=== PATIENT | male | born 1970 | race Two or more races ===

== ENCOUNTER 2021-08-02 04:18 | Emergency (ER) | payer SELFPAY ==
[2021-08-02 04:20] VITALS: BP 139/109; PULSE 92; RESP 30; TEMP 36.5; O2SAT 84; BMI 30.7
--- NOTE | 2021-08-02 04:28 | PC.NURSE ---
LANGUAGE INTERPRETING SERVICE IN USE.
--- NOTE | 2021-08-02 04:34 | ECG_ITS ---
APPROVED REPORT Exam: Resting ECG HR:95 bpm ECG Measurements Heart Rate 95 AXES HI 152 P -27 QRSd 80 QRS 68 QT 358 T 67 QTc 449 Conclusion Normal sinus rhythm Normal ECG Electronically signed by : Roberto Valdivia MD 08/07/2021 10:00:05
--- NOTE | 2021-08-02 04:37 | PC.NURSE ---
respitory in room for neb treatment
--- NOTE | 2021-08-02 04:39 | XR_ITS ---
PROCEDURE INFORMATION: Exam: XR Chest Exam date and time: 08/02/2021 4:39 AM Age: 51 years old Clinical indication: Shortness of breath; Additional info: SOA TECHNIQUE: Imaging protocol: XR of the chest. Views: 1 view. COMPARISON: No relevant prior studies available. FINDINGS: Lungs: Unremarkable. No consolidation. Pleural spaces: Unremarkable. No pleural effusion. No pneumothorax. Heart/Mediastinum: Unremarkable. No cardiomegaly. Bones/joints: Unremarkable. IMPRESSION: No acute findings.
--- NOTE | 2021-08-02 04:40 | PC.NURSE ---
O2 98% on 15LPM non-rebreather
[2021-08-02 04:47] LABS: Basophils # 0.1 K/mm3 (0-0.2); Basophils % 1.5 % (0.1-2.0); Eosinophils # 0.8 K/mm3 (0.0-0.4); Eosinophils % 11.9 % (0.1-12.0); Hematocrit 46.1 % (42.0-52.0); Hemoglobin 14.6 g/dL (14.1-18.0); Lymphocytes # 2.2 K/mm3 (0.7-4.5); Lymphocytes % 35.5 % (10-50); Mean Corpuscular HGB Conc 31.8 g/dL (31.8-35.4); Mean Corpuscular Hemoglobin 30.5 pg (27.0-31.2); Mean Platelet Volume 9.5 fl (7.4-10.4); Monocytes # 0.3 K/mm3 (0.1-1.0); Monocytes % 5.4 % (1.7-9.3); Neutrophils # 2.9 K/mm3 (1.8-7.8); Neutrophils % 45.8 % (37.0-80.0); Platelet Count 279 K/mm3 (142-424); Red Cell Distribution Width 13.5 % (11.5-17.5); White Blood Count 6.3 K/mm3 (4.8-10.8)
[2021-08-02 04:51] VITALS: BP 136/98; PULSE 80; O2SAT 98
[2021-08-02 04:53] LABS: Alanine Aminotransferase 34 U/L (12-78); Albumin Level 4.6 g/dl (3.5-5.0); Alkaline Phosphatase 189 U/L (38-126); Anion Gap 9.8 mEq/L (5-15); Aspartate Amino Transferase 39 U/L (17-59); Bilirubin,Direct 0.1 mg/dl (0.0-0.4); Bilirubin,Indirect 0.3 mg/dL (0.0-0.9); Bilirubin,Total 0.4 mg/dl (0.2-1.3); Bilirubin,Unconjugated 0.2 mg/dL (0.0-1.1); Blood Urea Nitrogen 14 mg/dl (9-20); Calcium 9.4 mg/dl (8.4-10.2); Carbon Dioxide 30 mmol/L (22.0-30.0); Chloride 104 mmol/L (98-107); Creatinine Clearance Estimated 136 mL/min (50-200); Estimated Glomerular Filt Rate 103 ml/min (>60); GFR (African American) 124 ML/MIN (>60); Glucose 122 mg/dl (74-100); Potassium 3.8 mmoL/L (3.5-5.1); Sodium 140 mmol/L (136-145); Total Protein,Serum 8.1 g/dl (6.3-8.2)
[2021-08-02 05:06] LABS: Troponin I < 0.01 ng/ml (0.00-0.034)
[2021-08-02 05:18] VITALS: BP 137/94; PULSE 76; O2SAT 97
--- NOTE | 2021-08-02 05:23 | [facility].EDSOB ---
ED Disposition Clinical Impression: Asthma with exacerbation Qualifiers: Asthma severity: moderate Asthma persistence: unspecified Qualified Code(s): J45.901 - Unspecified asthma with (acute) exacerbation Disposition: Home, Self-Care Condition on Discharge: Good Instructions: DI for Asthma -- Adult Additional Instructions: fluids and see pcp for follow up Prescriptions: predniSONE [Prednisone 20mg Tab] 20 mg PO BID #10 tab Prescription Printed Referrals: Provider,Referral, [Primary Care Provider] - - Critical Care Critical Care Time: No Attestation: On 08/02/21, the high probability of a clinically significant, sudden or life threatening deterioration of the following system(s) required my full and direct attention, intervention and personal management. The time I documented below is in addition to time spent performing reported procedures but includes the following listed in this critical care notation. Medical Decision Making - Medical Records Medical records reviewed: Yes: I reviewed the patient's medical records. - Raymond Inquiry Pt receiving controlled substance: No Vital Signs: 08/02/21 04:20 08/02/21 04:51 08/02/21 05:18 Temperature 97.7 F Temperature Source Oral Pulse Rate 80 76 Pulse Rate [Right Radial] 92 H Respiratory Rate 30 H Blood Pressure 136/98 H 137/94 H Blood Pressure [Right Arm] 139/109 H Blood Pressure Mean [Right Arm] 119 Blood Pressure Source Automatic Cuff Automatic Cuff Blood Pressure Source [Right Arm] Automatic Cuff Blood Pressure Position Supine Supine Blood Pressure Position [Right Arm] Sitting 02 Sat by Pulse Oximetry 84 L 98 97 Oxygen Delivery Method Room Air Nasal Cannula Room Air - Lab Data Lab results reviewed: Yes: I reviewed the patient's lab results. Lab Results 08/02/21 04:30: WBC 6.3, RBC 4.80, Hgb 14.6, Hct 46.1, MCV 96.0 H, MCH 30.5, MCHC 31.8, RDW 13.5, Plt Count 279, MPV 9.5, Neut % (Auto) 45.8, Lymph % (Auto) 35.5, [place] % (Auto) 5.4, Eos % (Auto) 11.9, Baso % (Auto) 1.5, Neut # (Auto) 2.9, Lymph # (Auto) 2.2, [place] # (Auto) 0.3, Eos # (Auto) 0.8 H, Baso # (Auto) 0.1 08/02/21 04:30: Sodium 140, Potassium 3.8, Chloride 104, Carbon Dioxide 30, Anion Gap 9.8, BUN 14, Creatinine 0.80, Estimated Creat Clear 136, Estimated GFR 103, Est GFR ( Amer) 124, Glucose 122 H, Calcium 9.4, Total Bilirubin 0.4, Direct Bilirubin 0.1, Conjugated Bilirubin 0.0, Indirect Bilirubin 0.3, Unconjugated Bilirubin 0.2, AST 39, ALT 34, Alkaline Phosphatase 189 H, Troponin I < 0.01, Total Protein 8.1, Albumin 4.6 Result diagrams: 08/02/21 04:30 08/02/21 04:30 Orders (Tests/Meds): ED MEDICATIONS Generic Name Dose Route Start Last Admin Trade Name Freq PRN Reason Stop Dose Admin Albuterol Sulfate 2.5 mg 08/02/21 05:22 Albuterol 0.083% 2.5 Mg/3 Ml Neb IH 08/02/21 05:23 ONCE ONE Sodium Chloride 1,000 mls @ 999 mls/hr 08/02/21 04:45 08/02/21 04:43 Sod Chlor 0.9% 1000ml Bag IV 08/02/21 05:45 999 mls/hr .Q1H1M JERARDO Administration Discontinued Medications Generic Name Dose Route Start Last Admin Trade Name Freq PRN Reason Stop Dose Admin Methylprednisolone Sodium Succinate 125 mg 08/02/21 04:39 08/02/21 04:43 Methylprednisolone Sod Succ 125mg Vial IV 08/02/21 04:40 125 mg ONCE ONE Administration ORDERS Category Date Time Status Troponin I Q3H Lab 08/02/21 07:45 Ordered Troponin I Q3H Lab 08/02/21 10:45 Ordered - Radiology Data #1 Image(s): Chest Image Reviewed: Yes I have reviewed radiologist's interpretation Preliminary Findings: Normal/NAD - ECG Data Tracing #1 Normal Sinus Rhythm: Yes Ischemic changes: non-specific ST-T wave changes - Reevaluation(s) Time: 05:30 Reevaluation #1: imroved Medical Decision Narrative: acute episode of asthma - has known asthma but no inhaler Resp/SOB HPI - General Chief Complaint: Shortness of Breath/Dyspnea Stated Com
[2021-08-02 05:47] VITALS: BP 124/84; PULSE 99; O2SAT 100
[2021-08-02 05:49] VITALS: BP 124/84; PULSE 99; RESP 17; TEMP 36.7; O2SAT 100
== END 2021-08-02 05:52 | disposition home or self-care (01) ==
PROVIDERS: Emergency Provider Emergency Medicine
DX: J45.901 Unspecified asthma with (acute) exacerbation (principal)
CPT/HCPCS: 71045; 80048; 80076; 84484; 85025; 93005; 96365; 96375; 99284